=== PATIENT | female | born 1965 | race Caucasian/White ===

== ENCOUNTER 2019-04-29 11:19 | Emergency (ER) | payer OTHER ==
[2019-04-29 11:28] VITALS: BP 162/95; PULSE 77; TEMP 98.1; BMI 29.0
--- NOTE | 2019-04-29 11:49 | PDOC ---
History of Present Illness - General Chief Complaint: Bone Injury Stated Complaint: RT FOOT PAIN Time Seen by Provider: 04/29/19 11:36 History Source: Patient Exam Limitations: Clinical Condition - History of Present Illness Initial Comments: 04/29/19 12:05 Patient with no significant past medical history present with complaint of right distal foot and great toe pain status post slip on the wet floor yesterday twisting right foot. Patient reported increased pain to foot with ambulation. Patient did not take anything for pain Occurred: reports: yesterday Past History - Past Medical History Allergies/Adverse Reactions: Allergies Allergy/AdvReac Type Severity Reaction Status Date / Time No Known Allergies Allergy Verified 04/29/19 11:23 Home Medications: Ambulatory Orders Ibuprofen 800 mg PO Q8H PRN #20 tablet 04/29/19 COPD: Yes HTN: Yes - Immunization History Immunization Up to Date: Yes - Suicide/Smoking/Psychosocial Hx Smoking History: Current every day smoker Information on smoking cessation initiated: No Hx Alcohol Use: No Drug/Substance Use Hx: No Review of Systems - Review of Systems Able to Perform ROS?: Yes Is the patient limited Ukrainian proficient: No Constitutional: No: Malaise, Weakness HEENTM: No: Symptoms Reported Respiratory: No: Symptoms reported Cardiac (ROS): No: Symptoms Reported Musculoskeletal: Yes: Symptoms Reported, See HPI, Joint Pain (right big toe), Joint Swelling, Muscle Pain (right big toe) Integumentary: Yes: Symptoms Reported. No: Bruising, Change in Color Neurological: No: Numbness, Paresthesia, Tingling, Weakness All Other Systems: Reviewed and Negative *Physical Exam - Vital Signs Last Vital Signs Temp Pulse Resp BP Pulse Ox 98.1 F 77 18 162/95 99 04/29/19 11:24 04/29/19 11:24 04/29/19 11:24 04/29/19 11:24 04/29/19 11:24 - Physical Exam Comments: 04/29/19 11:49 GENERAL: Well developed, well nourished. Awake and alert in mild acute distress. CARDIOVASCULAR: Regular rate and rhythm. No murmurs, rubs, or gallops. PULMONARY: No evidence of respiratory distress. MUSCULOSKELETAL : mild tenderness over dorsum of right foot over 1-4th metatarsals and right great toe. no ankle tenderness. no swelling to foot or ankle No bony deformities SKIN: Warm and dry. Normal capillary refill. No bruising or ecchymosis NEUROLOGICAL: Alert, awake, appropriate. No motor deficits in the lower extremities. Gait is normal without ataxia. PSYCHIATRIC: Cooperative. Good eye contact. Appropriate mood and affect. General Appearance: Yes: Nourished, Appropriately Dressed, Mild Distress ED Treatment Course - RADIOLOGY Radiology Studies Ordered: Category Date Time Status FOOT-RIGHT [RAD] Stat Radiology 04/29/19 11:37 Ordered Medical Decision Making - Medical Decision Making 04/29/19 12:06 Patient with no significant past medical history present with complaint of right distal foot and great toe pain status post slip on the wet floor yesterday twisting right foot. Patient reported increased pain to foot with ambulation. Patient did not take anything for pain Exam significant for moderate tenderness to dorsal of distal right foot and right great toe with first to fourth metatarsals. No swelling or visible deformity to foot or toe. No tenderness to ankle.. X-ray of right foot shows no acute fracture or dislocation. Symptoms likely foot sprain. Right foot wrapped with Jhony bandage. Ibuprofen 800 mg by mouth ordered for pain. Patient is stable for discharge on ibuprofen when necessary for pain with podiatry follow-up as needed 04/29/19 12:31 Patient given crutches to keep weight off right foot. *DC/Admit/Observation/Transfer Diagnosis at time of Disposition: Sprain of foot, right Qualifiers: Encounter type: initial encounter Qualified Code(s): S93.601A - Unspecified sprain of right foot, initial encounter - Discharge Dispostion Disposition: HOME Condition at time of disposition: Stable Decision to Admit order: No - Prescriptions Prescriptions: Ibuprofen 800 mg PO Q8H PRN #20 tablet PRN Reason: pain - Referrals Referrals: Medardo Castañeda MD [Staff Physician] - - Patient Instructions Printed Discharge Instructions: DI for Foot Sprain Additional Instructions: use provided crutches to keep weight off right foot for the next 3 days. Take prescribed motrin as needed for pain. Apply hot compress to foot 2-3 times a day as needed for pain and swelling. keep leg elevated. Follow-up with referred podiatry as needed if no improvement in 3 days - Post Discharge Activity Forms/Work/School Notes: Back to Work
[2019-04-29] MEDS ORDERED: IBUPROFEN 400 MG TABLET (FP) PO ONE ×2 (12:04→12:14)
== END 2019-04-29 12:19 | disposition home or self-care (01) ==
LOC: JERFT 11:19
DX: S93.601A Unspecified sprain of right foot, initial encounter (principal); X58.XXXA Exposure to other specified factors, initial encounter; Y93.89 Activity, other specified; Y92.89 Other specified places as the place of occurrence of the external cause; I10 Essential (primary) hypertension
CPT/HCPCS: 73630-TC-RT-FY; 99282-25